=== PATIENT | male | born 1975 | race Caucasian/White ===

== ENCOUNTER 2021-05-28 03:04 | Inpatient (IN) | payer SELFPAY ==
[2021-05-28] MEDS ORDERED: Acetaminophen 325 MG TAB PO PRN (04:15)
[2021-05-28] MEDS ORDERED: Ondansetron ODT 4 MG TAB SL PRN (04:15)
[2021-05-28] MEDS ORDERED: Ondansetron PF 4 MG/2 ML Vial IVP PRN (04:15)
[2021-05-28] MEDS ORDERED: Cefepime 1 GM VIAL ONE (04:22)
[2021-05-28] MEDS ORDERED: HYDROcodone/Acetaminophen 7.5/325 mg Tablet PO PRN (05:00)
[2021-05-28 05:08] VITALS: BMI 30.8
[2021-05-28] MEDS: Sodium Chloride 0.9% 1,000 ML IV SCH ×2 (05:20→14:37)
[2021-05-28 06:22] LABS: Anion Gap 10 mmol/L (10-20); BUN (Urea Nitrogen) 10 mg/dL (8.9-20.6); Calc. Creatinine Clearance 158 mL/min (70-130); Calcium 8.7 mg/dL (7.8-10.44); Carbon Dioxide 28 mmol/L (22-29); Chloride 103 mmol/L (98-107); Glucose 92 mg/dL (70-105); Potassium 3.8 mmol/L (3.5-5.1); Sodium 137 mmol/L (136-145)
[2021-05-28] MEDS ORDERED: FLU VACC QS2021-22(6MOS UP)/PF 60 MCG/0.5 ML SYRINGE IM ONE (09:00)
[2021-05-28] MEDS ORDERED: HYDROcodone/Acetaminophen 10/325 mg Tablet PO PRN (09:04)
[2021-05-28] MEDS ORDERED: Enoxaparin Sodium 40 MG/0.4 ML SYRINGE SC SCH (09:45)
[2021-05-28] MEDS ORDERED: Bupivacaine/Epinephrine 0.25% 30 ML VIAL IJ SCH (11:30)
[2021-05-28] MEDS ORDERED: Lidocaine 1% w/Epinephrine 1:100K 20 ML VIAL FS SCH (11:30)
[2021-05-28] MEDS ORDERED: Bupivacaine 0.25% 10 ML VIAL FS SCH (11:45)
[2021-05-28] MEDS ORDERED: Bupivacaine 0.25% HCL 30 ML VIAL FS SCH (11:45)
[2021-05-28] MEDS: HYDROcodone/Acetaminophen 5/325 mg Tablet PO PRN ×3 (14:00→23:08)
[2021-05-28] MEDS: Vancomycin HCl 1.5 GM in Sodium Chloride 0.9% 250 ML 300 ML IVPB SCH ×2 (14:04→23:04)
[2021-05-28 14:54] LABS: SARS-CoV-2 PCR by NAA Not Detected (NotDetected)
[2021-05-28] MEDS ORDERED: Cefepime 2 GM in Sodium Chloride 0.9% 100 ML IVPB SCH (17:00)
[2021-05-28] MEDS: Enoxaparin Sodium 40 MG/0.4 ML SYRINGE SC SCH (19:51)
[2021-05-28] MEDS: Ketorolac Tromethamine 30 MG/ML VIAL IVP PRN (19:57)
[2021-05-28] MEDS ORDERED: Vancomycin HCl 750 MG in Sodium Chloride 0.9% 250 ML 250 ML IVPB SCH (21:00)
[2021-05-29] MEDS: Ketorolac Tromethamine 30 MG/ML VIAL IVP PRN (03:54)
[2021-05-29] MEDS: HYDROcodone/Acetaminophen 5/325 mg Tablet PO PRN ×2 (03:54→08:19)
[2021-05-29 06:10] LABS: #Basophils 0.1 thou/uL (0.0-0.2); #Eosinphils 0.5 thou/uL (0.0-0.7); #Lymphocytes 1.8 thou/uL (1.20-3.40); #Monocytes 0.6 thou/uL (0.11-0.59); #Neutrophils 3.3 thou/uL (1.40-6.50); %Basophils 1.2 % (0.0-1.0); %Eosinophils 7.7 % (0.0-10.0); %Lymphocytes 29.1 % (21.0-51.0); %Monocytes 9.3 % (0.0-10.0); %Neutrophils 52.7 % (42.0-75.0); Mean Corpuscular HGB CONC 31.8 g/dL (32.0-36.0); Mean Corpuscular Hemoglobin 30.1 pg (27.0-31.0); Mean Corpuscular Volume 94.7 fL (78.0-98.0); Mean Platelet Volume 7.8 fL (7.4-10.4); Platelet Count 228 thou/uL (130-400); RBC Distribution Width 11.7 % (11.5-14.5); White Blood Cell (WBC) Count 6.2 thou/uL (4.8-10.8)
[2021-05-29 06:27] LABS: Anion Gap 12 mmol/L (10-20); BUN (Urea Nitrogen) 10 mg/dL (8.9-20.6); Calc. Creatinine Clearance 165 mL/min (70-130); Calcium 8.6 mg/dL (7.8-10.44); Carbon Dioxide 25 mmol/L (22-29); Chloride 107 mmol/L (98-107); Glucose 97 mg/dL (70-105); Potassium 4.5 mmol/L (3.5-5.1); Sodium 139 mmol/L (136-145)
[2021-05-29] MEDS: Vancomycin HCl 1.5 GM in Sodium Chloride 0.9% 250 ML 300 ML IVPB SCH (09:09)
[2021-05-29] MEDS: Morphine 4 MG/ML VIAL SLOW IVP PRN (09:09)
[2021-05-29] MEDS ORDERED: Polyethylene Glycol 3350 17 GM Packet PO PRN (10:27)
[2021-05-29] MEDS ORDERED: cefTRIAXone\\ROCEPHIN 1 GM in Sodium Chloride 0.9% 100 ML IVPB SCH (11:00)
[2021-05-29] MEDS: HYDROcodone/Acetaminophen 10/325 mg Tablet PO PRN ×4 (12:27→23:40)
[2021-05-29] MEDS: Senokot S 8.6-50 MG TAB PO SCH (20:03)
[2021-05-29] MEDS: Enoxaparin Sodium 40 MG/0.4 ML SYRINGE SC SCH (20:04)
[2021-05-29 21:39] LABS: Vancomycin, Trough 8.7 ug/mL
[2021-05-29] MEDS ORDERED: Vancomycin 1.5 GRAM/300 ML BAG 1.5 GM in Premix Bag 1 BAG IVPB SCH (22:00)
[2021-05-30] MEDS: Ketorolac Tromethamine 30 MG/ML VIAL IVP PRN (02:25)
[2021-05-30] MEDS: HYDROcodone/Acetaminophen 10/325 mg Tablet PO PRN ×5 (03:28→22:32)
[2021-05-30] MEDS: Vancomycin HCl 1.25 GM in Sodium Chloride 0.9% 250 ML 250 ML IVPB SCH ×3 (05:43→22:33)
[2021-05-30] MEDS: Saccharomyces boulardii 250 MG CAP PO SCH (07:57)
[2021-05-30] MEDS: Senokot S 8.6-50 MG TAB PO SCH (07:57)
[2021-05-30] MEDS: Morphine 4 MG/ML VIAL SLOW IVP PRN (08:56)
[2021-05-30] MEDS ORDERED: Sodium Chloride 0.9% 100 ML ONE (13:46)
[2021-05-31] MEDS: HYDROcodone/Acetaminophen 10/325 mg Tablet PO PRN ×3 (04:04→11:34)
[2021-05-31] MEDS: Vancomycin HCl 1.25 GM in Sodium Chloride 0.9% 250 ML 250 ML IVPB SCH ×2 (05:28→15:14)
[2021-05-31 07:33] VITALS: BP 141/60; TEMP 98.4
[2021-05-31] MEDS: Saccharomyces boulardii 250 MG CAP PO SCH (07:47)
[2021-05-31] MEDS: Morphine 4 MG/ML VIAL SLOW IVP PRN (09:54)
[2021-05-31] MEDS: Ketorolac Tromethamine 30 MG/ML VIAL IVP PRN (14:09)
== END 2021-05-31 16:03 | disposition home or self-care (01) | DRG 603 ==
LOC: ERS 03:04 → T4-A 03:57 → OBSVTOIN 05-29 07:32
PROVIDERS: ADMIT Internal Medicine; ATTEND Internal Medicine
PROC: 0J910ZZ Drainage of Face Subcutaneous Tissue and Fascia, Open Approach (ICD-10-PCS; principal; 2021-05-28)
DX: L03.213 Periorbital cellulitis (principal); L02.01 Cutaneous abscess of face; Z20.822 Contact with and (suspected) exposure to COVID-19; F17.210 Nicotine dependence, cigarettes, uncomplicated; D64.9 Anemia, unspecified; B95.61 Methicillin susceptible Staphylococcus aureus infection as the cause of diseases classified elsewhere; E66.9 Obesity, unspecified; Z68.30 Body mass index [BMI] 30.0-30.9, adult; Z71.6 Tobacco abuse counseling
CPT/HCPCS: 10060; 36415; 80048; 80202; 85025; 87070; 87077; 87186; 87205; 96372; 96375; 96376; G0378; J0692; J0696; J1650; J1885; J2270; J3370; J3490; J7050; U0003; U0005